=== PATIENT | male | born 1980 | race Caucasian/White ===

== ENCOUNTER → 2016-08-11 | Outpatient (CLI) | payer OTHER ==
[2016-08-11 10:38] LABS: HEMOGLOBIN 15.3 gm/dl (14.0-17.5); RED BLOOD COUNT 5.02 M/UL (4.20-5.50); WHITE BLOOD COUNT 5.7 K/UL (4.5-11.0)
== END ==
LOC: LAB 09:40
PROVIDERS: Ophthalmology
DX: H20.022 Recurrent acute iridocyclitis, left eye (principal)
CPT/HCPCS: 36415; 71020; 82164; 85025; 86039; 86140; 86618; 86780